=== PATIENT | female | born 1995 | race African-American/Black ===

== ENCOUNTER 2020-12-17 12:58 | Emergency (ER) | payer OTHER ==
[~2020-12-17] VITALS: Ht 157.5 cm; Wt 57.3 kg
[2020-12-17] MEDS ORDERED: SYNT25TA PO (13:10)
--- NOTE | 2020-12-17 14:32 | REP ---
INDICATION: fall injury. COMPARISON: None. FINDINGS: No acute fracture or destructive osseous lesion. The mortise is intact. IMPRESSION: Within normal limits <Electronically signed by Margarito Bobo > 12/17/20 [id number]
--- NOTE | 2020-12-17 14:35 | REP ---
INDICATION: fall injury. COMPARISON: None. TECHNIQUE: Four views FINDINGS: The joint spaces are symmetric and relatively well maintained. There is no evidence of acute fracture or destructive osseous lesion. IMPRESSION: Negative. <Electronically signed by Margarito Bobo > 12/17/20 [id number]
--- NOTE | 2020-12-17 15:33 | REP ---
INDICATION: trauma, twist. pain at fibular head COMPARISON: None. TECHNIQUE: AP and lateral right lower leg. FINDINGS: There is no evidence of acute fracture, dislocation, or intrinsic bone disease. IMPRESSION: No fracture or dislocation. <Electronically signed by Dixon Echeverria > 12/17/20 [id number]
[2020-12-17 15:49] VITALS: BP 119/77
== END 2020-12-17 16:12 | disposition home or self-care (01) ==
LOC: M ED 12:58
DX: S93.401A Sprain of unspecified ligament of right ankle, initial encounter (principal); S93.601A Unspecified sprain of right foot, initial encounter; M25.571 Pain in right ankle and joints of right foot; W01.0XXA Fall on same level from slipping, tripping and stumbling without subsequent striking against object, initial encounter; Y92.9 Unspecified place or not applicable; Y93.9 Activity, unspecified; Y99.1 Military activity; E03.9 Hypothyroidism, unspecified; Z79.890 Hormone replacement therapy

== ENCOUNTER 2021-02-16 07:47 | Emergency (ER) | payer OTHER ==
[~2021-02-16] VITALS: Ht 157.5 cm; Wt 57.4 kg
[~2021-02-16 07:47] MED LIST: SYNT25TA PO
[2021-02-16] MEDS ORDERED: vitamin d (08:04)
[2021-02-16] MEDS ORDERED: NS 1,000 ML IV ONE (08:05)
[2021-02-16] MEDS ORDERED: ONDANSETRON 4MG/2ML VIAL IV ONE (08:05)
[2021-02-16 08:33] LABS: BASO # 0.1 10^3/uL (0.0-0.2); BASO % 0.8 % (0.0-1.0); EOS # 0.1 10^3/uL (0.0-0.5); EOS % 1.7 % (0.0-3.0); HEMOGLOBIN 12.8 g/dl (12.0-15.5); LYMPH # 1.4 10^3/uL (1.5-5.0); LYMPH % 22.6 % (24.0-44.0); MEAN CORPUSCULAR HEMOGLOBIN 30.8 pg (27.0-33.0); MEAN CORPUSCULAR HGB CONC 32.8 g/dl (32.0-36.5); MONO # 0.6 10^3/uL (0.0-0.8); MONO % 9.6 % (2.0-8.0); NEUTROPHILS # 4.1 10^3/uL (1.5-8.5); NEUTROPHILS % 64.8 % (36.0-66.0); PLATELET COUNT, AUTOMATED 291 10^3/uL (150-450); RED BLOOD COUNT 4.15 10^6/uL (4.00-5.40); WHITE BLOOD COUNT 6.4 10^3/uL (4.0-10.0)
[2021-02-16 09:08] LABS: ALBUMIN 3.8 GM/DL (3.2-5.2); ALT/SGPT 21 U/L (12-78); BILIRUBIN,DIRECT < 0.1 MG/DL (0.0-0.2); BILIRUBIN,TOTAL 0.3 MG/DL (0.2-1.0); BLOOD UREA NITROGEN 12 MG/DL (7-18); CALCIUM LEVEL 8.6 MG/DL (8.5-10.1); CARBON DIOXIDE LEVEL 25 MEQ/L (21-32); CHLORIDE LEVEL 110 MEQ/L (98-107); CREATININE FOR GFR 0.74 MG/DL (0.55-1.30); GLOMERULAR FILTRATION RATE > 60.0 (>60); GLUCOSE, FASTING 86 MG/DL (70-100); LIPASE 309 U/L (73-393); POTASSIUM SERUM 4.5 MEQ/L (3.5-5.1); SODIUM LEVEL 141 MEQ/L (136-145)
--- NOTE | 2021-02-16 09:09 | ECGEPIP ---
[facility] - ED Test Date: 2021-02-16 Pat Name: ADDY SIERRA Department: Room: - Gender: Female Plate Sensitizer: nikita : 1995 Requested By: JAMIE Gates Order Number: [id number] Reading MD: Eddie Allen Measurements Intervals [place] Rate: 83 P: 27 CO: 140 QRS: 27 QRSD: 60 T: 34 QT: 376 QTc: 441 Interpretive Statements Normal sinus rhythm NONSPECIFIC T WAVE ABNORMALITY(S) NO PRIORS FOR COMPARISON Electronically Signed on 02-16-2021 9:08:41 EDT by Eddie Allen
[2021-02-16 09:11] LABS: HCG, SERUM QUALITATIVE NEGATIVE (NEGATIVE)
[2021-02-16] MEDS ORDERED: ISOVUE-370 76% 100ML VIAL As Ordered ONE (10:17)
--- NOTE | 2021-02-16 12:47 | REP ---
INDICATION: vomiting, diarrhea, LLQ pain. COMPARISON: None. TECHNIQUE: Scans were obtained during contrast administration. FINDINGS: The lower lungs are clear. The liver shows normal size and attenuation. There is no mass or biliary tract dilatation. The gallbladder is fluid filled without evidence of gallstone. The pancreas is, spleen, aorta, adrenal glands and kidneys are unremarkable. The urinary bladder is distended. The uterus and ovaries are unremarkable. There is no free fluid, mass or inflammatory change in the abdomen or pelvis. The large and small bowel are unremarkable. IMPRESSION: Negative CT abdomen and pelvis. <Electronically signed by Magno Lopez > 02/16/21 [id number]
[2021-02-16] MEDS ORDERED: ZOFR4TAB16 PO (14:13)
[2021-02-16 15:25] VITALS: BP 100/69
== END 2021-02-16 15:30 | disposition home or self-care (01) ==
LOC: M ED 07:47
DX: R19.7 Diarrhea, unspecified (principal); R11.10 Vomiting, unspecified; E03.9 Hypothyroidism, unspecified
CPT/HCPCS: 74177; 80048; 80076; 83690; 84703; 85025; 87505; 93005; 93041; 96361; 96374; 99285; J2405; Q9967

== ENCOUNTER 2021-05-14 09:24 | Emergency (ER) | payer OTHER ==
[~2021-05-14] VITALS: Ht 157.5 cm; Wt 56.8 kg
[~2021-05-14 09:24] MED LIST changes: +ZOFR4TAB16 PO; +vitamin d
--- OUTSIDE RECORDS SUMMARY | 2021-05-14 09:31 | CCD ---
Author Author [facility] Address Unknown Phone Unavailable Support Name Relationship Address Phone [facility] Next Of Kin [address] [place] [address] Unavailable Re-disclosure Warning The records that you are about to access may contain information from federally-assisted alcohol or drug abuse programs. If such information is present, then the following federally mandated warning applies: This information has been disclosed to you from records protected by federal confidentiality rules (42 CFR part 2). The federal rules prohibit you from making any further disclosure of this information unless further disclosure is expressly permitted by the written consent of the person to whom it pertains or as otherwise permitted by 42 CFR part 2. A general authorization for the release of medical or other information is NOT sufficient for this purpose. The Federal rules restrict any use of the information to criminally investigate or prosecute any alcohol or drug abuse patient.The records that you are about to access may contain highly sensitive health information, the redisclosure of which is protected by Article 27-F of the [facility] Public Health law. If you continue you may have access to information: Regarding HIV / AIDS; Provided by facilities licensed or operated by the [facility] Office of Mental Health; or Provided by the [facility] Office for People With Developmental Disabilities. If such information is present, then the following [facility] mandated warning applies: This information has been disclosed to you from confidential records which are protected by state law. State law prohibits you from making any further disclosure of this information without the specific written consent of the person to whom it pertains, or as otherwise permitted by law. Any unauthorized further disclosure in violation of state law may result in a fine or alf sentence or both. A general authorization for the release of medical or other information is NOT sufficient authorization for further disc losure. Medications No Information Insurance Providers Payer name Policy type / Coverage type Policy ID Covered alliance party ID Covered alliance party's relationship to kumar Policy Kumar Plan Information [facility] [employer] [id number] Problems, Conditions, and Diagnoses No Information Surgeries/Procedures No Information Results No Information Social History No Information
[2021-05-14 12:36] VITALS: O2SAT 98
[2021-05-14] MEDS ORDERED: BENZONATATE 100MG CAPSULE PO ONE (12:55)
[2021-05-14] MEDS ORDERED: ACETAMINOPHEN 500 MG TAB PO ONE (12:55)
[2021-05-14 13:13] VITALS: BP 132/80
== END 2021-05-14 14:39 | disposition left against medical advice (07) ==
LOC: M ED 09:24
DX: R05.9 Cough, unspecified (principal); J02.9 Acute pharyngitis, unspecified; R50.9 Fever, unspecified; Z20.822 Contact with and (suspected) exposure to COVID-19; Z53.20 Procedure and treatment not carried out because of patient's decision for unspecified reasons; E03.9 Hypothyroidism, unspecified; Z79.899 Other long term (current) drug therapy

== ENCOUNTER 2022-03-30 11:24 | Emergency (ER) | payer OTHER ==
[~2022-03-30] VITALS: Ht 157.5 cm; Wt 59.1 kg
[2022-03-30] MEDS ORDERED: IBUP80TA PO (13:55)
[2022-03-30 14:03] VITALS: BP 121/74
== END 2022-03-30 14:03 | disposition home or self-care (01) ==
LOC: M ED 11:24
DX: R20.2 Paresthesia of skin (principal); M25.571 Pain in right ankle and joints of right foot; F17.200 Nicotine dependence, unspecified, uncomplicated; Z91.010 Allergy to peanuts